=== PATIENT | female | born 1990 | race Hispanic/Latino ===

== ENCOUNTER 2018-07-12 17:30 | Inpatient (IN) | payer OTHER ==
[2018-07-12] MEDS ORDERED: PENICILLIN 5 MU in NA CHLORIDE 0.9% 100 ML IV ONE (20:01)
[2018-07-12] MEDS ORDERED: Ringers Lactate 1,000 ML IV PRN (20:01)
[2018-07-12] MEDS ORDERED: METHYLERGONOVINE 0.2MG/ML AMP IM PRN (20:01)
[2018-07-12] MEDS ORDERED: BUTORPHANOL 1 MG/ML INJ IV PRN (20:01)
[2018-07-12] MEDS ORDERED: CARBOPROST TROME 250 MCG/ML IM PRN (20:01)
[2018-07-12] MEDS ORDERED: PROMETHAZINE 25 MG/ML VIAL IV PRN (20:01)
--- OUTSIDE RECORDS SUMMARY | 2018-07-12 20:04 | XMS REPORT ---
:1990 Author Organization eClinicalWorks Care Team Providers Name Role Phone Destin Wagner Provider Role Unavailable Allergies No Known Allergies Problems Problem Type Condition Code Onset Dates Condition Status Problem Body mass index (BMI) of 34.0-34.9 Z68.34 Active in adult Problem Encounter for supervision of other Z34.82 Active normal in second trimester Problem Encounter for gynecological Z01.419 Active examination without abnormal finding Problem Obesity complicating in O99.213 Active third trimester Problem Obesity complicating in O99.212 Active second trimester Problem Supervision of high risk O09.93 Active in third trimester Problem Family history of other congenital Z82.79 Active malformations, deformations and chromosomal abnormalities Problem Maternal care for suspected O35.2XX0 Active hereditary disease in fetus, single or unspecified fetus Problem Supervision of high risk O09.92 Active in second trimester Problem Obesity complicating in O99.211 Active first trimester Assessment Obesity complicating in O99.213 Active third trimester Assessment Supervision of high risk O09.93 Active in third trimester Assessment Family history of other congenital Z82.79 Active malformations, deformations and chromosomal abnormalities Problem Other obesity due to excess E66.09 Active calories Medications Medication Code Code Instructions Start End Status Dosage System Date Date Diflucan ND 79773204506 150 MG Orally Sep 09, Active 1 tablet Once a day 2017 Diflucan NDC 71581888138 150 MG Orally Active 1 tablet Once a day NuvaRing [facility] [address]-31 0.015-0.12 Active 1 ring MG/24HR Vaginal Multivitamin ND 30670010479 - Orally Active not Women defined Results No Known Results Summary Purpose eClinicalWorks Submission
--- OUTSIDE RECORDS SUMMARY | 2018-07-12 20:04 | XMS REPORT ---
:1990 Author Organization eClinicalWorks Care Team Providers Name Role Phone Destin Wagner Provider Role Unavailable Allergies No Known Allergies Problems Problem Type Condition Code Onset Dates Condition Status Assessment Other obesity due to excess E66.09 Active calories Assessment Encounter for supervision of other Z34.82 Active normal in second trimester Assessment Family history of other congenital Z82.79 Active malformations, deformations and chromosomal abnormalities Assessment Obesity complicating in O99.211 Active first trimester Assessment Maternal care for suspected O35.2XX0 Active hereditary disease in fetus, single or unspecified fetus Problem Family history of other congenital Z82.79 Active malformations, deformations and chromosomal abnormalities Problem Encounter for supervision of other Z34.82 Active normal in second trimester Problem Obesity complicating in O99.211 Active first trimester Problem Body mass index (BMI) of 34.0-34.9 Z68.34 Active in adult Problem Other obesity due to excess E66.09 Active calories Problem Maternal care for suspected O35.2XX0 Active hereditary disease in fetus, single or unspecified fetus Problem Encounter for gynecological Z01.419 Active examination without abnormal finding Medications Medication Code Code Instructions Start End Status Dosage System Date Date NuvaRing [facility] [address]-64 0.015-0.12 Active 1 ring MG/24HR Vaginal Diflucan [facility] 99109693947 150 MG Orally Sep 09, Active 1 tablet Once a day 2017 Multivitamin [facility] 33487217723 - Orally Active not Women defined Diflucan NDC 19232031046 150 MG Orally Active 1 tablet Once a day Results No Known Results Summary Purpose eClinicalWorks Submission
--- OUTSIDE RECORDS SUMMARY | 2018-07-12 20:04 | XMS REPORT ---
:1990 Author Organization eClinicalWorks Care Team Providers Name Role Phone Shania Rosado Provider Role Unavailable Allergies, Adverse Reactions, Alerts Substance Reaction Event Type N.K.D.A. Info Not Available Non Drug Allergy Problems Problem Type Condition Code Onset Dates Condition Status Problem Encounter for gynecological Z01.419 Active examination without abnormal finding Problem Body mass index (BMI) of 34.0-34.9 Z68.34 Active in adult Problem Other obesity due to excess E66.09 Active calories Assessment 9 weeks gestation of Z3A.09 Active Assessment Body mass index (BMI) of 34.0-34.9 Z68.34 Active in adult Medications Medication Code Code Instructions Start End Status Dosage System Date Date NuvaRing [facility] [address]-47 0.015-0.12 Active 1 ring MG/24HR Vaginal Diflucan [facility] 24021612977 150 MG Orally Sep 09, Active 1 tablet Once a day [address] [facility] 90899371181 - Orally Active not Women defined Results No Known Results Summary Purpose eClinicalWorks Submission
--- OUTSIDE RECORDS SUMMARY | 2018-07-12 20:04 | XMS REPORT ---
:1990 Author Organization eClinicalWorks Care Team Providers Name Role Phone Destin Wagner Provider Role Unavailable Allergies, Adverse Reactions, Alerts Substance Reaction Event Type N.K.D.A. Info Not Available Non Drug Allergy Problems Problem Type Condition Code Onset Dates Condition Status Assessment Encounter for supervision of Z34.91 Active low-risk in first trimester Assessment Amenorrhea N91.2 Active Assessment Encounter to determine O36.80X0 Active viability of , single or unspecified fetus Problem Family history [...] examination without abnormal finding Medications Medication Code System Code Instructions Start End Date Status Dosage Date NuvaRing [facility] [address]-23 0.015-0.12 Active 1 ring MG/24HR Vaginal Diflucan [facility] 76561972651 150 MG Orally Sep 09, Active 1 tablet Once a day 2017 Results Name Result Date Reference Range Unit Abnormality Flag Vaginitis/Vaginosis, DNA Probe Summary Purpose eClinicalWorks Submission
--- OUTSIDE RECORDS SUMMARY | 2018-07-12 20:04 | XMS REPORT ---
:1990 Author Organization eClinicalWorks Care Team Providers Name Role Phone Destin Wagner Provider Role Unavailable Allergies No Known Allergies Problems Problem Type Condition Code Onset Dates Condition Status Problem Family history of other congenital Z82.79 [...] Z01.419 Active examination without abnormal finding Medications No Known Medications Results No Known Results Summary Purpose eClinicalWorks Submission
--- OUTSIDE RECORDS SUMMARY | 2018-07-12 20:04 | XMS REPORT ---
[...] excess E66.09 Active calories Medications Medication Code System Code Instructions Start Date End Date Status Dosage Diflucan [facility] 65679844142 150 MG Orally Active 1 tablet Once a day Results No Known Results Summary Purpose eClinicalWorks Submission
--- OUTSIDE RECORDS SUMMARY | 2018-07-12 20:04 | XMS REPORT ---
:1990 Author Organization eClinicalWorks Care Team Providers Name Role Phone Destin Wagner Provider Role Unavailable Allergies No Known Allergies Problems Problem Type Condition Code Onset Dates Condition Status Problem Body mass index (BMI) of 34.0-34.9 Z68.34 Active in adult Problem Other obesity due to excess E66.09 Active calories Problem Supervision of high risk O09.92 Active in second trimester Problem Obesity complicating in O99.211 Active first trimester Problem Obesity complicating in O99.212 Active second trimester Problem Maternal care for suspected O35.2XX0 Active hereditary disease in fetus, single or unspecified fetus Problem Encounter for gynecological Z01.419 Active examination without abnormal finding Problem Family history of other congenital Z82.79 Active malformations, deformations and chromosomal abnormalities Problem Encounter for supervision of other Z34.82 Active normal in second trimester Assessment Maternal care for suspected O35.2XX0 Active hereditary disease in fetus, single or unspecified fetus Assessment Family history of other congenital Z82.79 Active malformations, deformations and chromosomal abnormalities Assessment Obesity complicating in O99.212 Active second trimester Assessment Supervision of high risk O09.92 Active in second trimester Medications Medication Code Code Instructions Start End Status Dosage System Date Date Multivitamin [facility] 71100381584 - Orally Active not Women defined Diflucan ND 86732647010 150 MG Orally Sep 09, Active 1 tablet Once a day 2017 Diflucan NDC 54213392500 150 MG Orally Active 1 tablet Once a day NuvaRing [facility] [address]-70 0.015-0.12 Active 1 ring MG/24HR Vaginal Results No Known Results Summary Purpose eClinicalWorks Submission
--- OUTSIDE RECORDS SUMMARY | 2018-07-12 20:04 | XMS REPORT ---
[...] End Status Dosage System Date Date NuvaRing [facility] [address]-89 0.015-0.12 Active 1 ring MG/24HR Vaginal Diflucan [facility] 35968503400 150 MG Orally Sep 09, Active 1 tablet Once a day 2017 Diflucan [facility] 91791616287 150 MG Orally Active 1 tablet Once a day Multivitamin ND 25477818210 - Orally Active not Women defined Results No Known Results Summary Purpose eClinicalWorks Submission
[2018-07-12] MEDS ORDERED: Ringers Lactate 1,000 ML IV SCH (21:00)
[2018-07-12] MEDS ORDERED: OXYTOCIN/LR 20 UNIT/1,000 ML BAG IV SCH (21:00)
[2018-07-12 21:32] LABS: RPR Titer ND
[2018-07-12 21:39] LABS: Urine Appearance CLOUDY; Urine Bilirubin NEGATIVE (NEG); Urine Blood NEGATIVE (NEG); Urine Color YELLOW; Urine Glucose NEGATIVE (NEG); Urine Protein NEGATIVE (NEG); Urine Specific Gravity 1.015 (1.005-1.030); Urine Urobilinogen 0.2 mg/dL (0.2-1.0)
[2018-07-12 21:53] LABS: Absolute Lymphocytes (CBC) 2.3 K/uL (0.7-4.9); Absolute Monocytes 0.6 K/uL (0.1-1.3); Absolute Neutrophil 7.6 K/uL (1.8-8.0); Basophils % 0.3 % (0-1.3); Eosinophils % 0.7 % (0-4.4); Hematocrit 34.7 % (36.0-45.0); Lymphocytes % 21.7 % (15.3-44.8); MPV 8.2 fL (7.6-11.3); Monocytes % 5.9 % (3.3-12.3); RBC Red Blood Cell Count 4.35 M/uL (3.86-4.86)
[2018-07-12 21:59] LABS: Urine Microscopic Reflex ORDER UMIC
[2018-07-12 22:00] LABS: Urine Bacteria <20 /HPF (<20); Urine RBC <5 /HPF (NONE SEEN)
[2018-07-12 22:01] LABS: Urine Culture Reflex Order NOT NEEDED
[2018-07-12] MEDS ORDERED: PENICILLIN G POT 5 MU/100 ML BAG IV ONE (22:17)
[2018-07-12] MEDS ORDERED: ZOLPIDEM TARTRATE 5 MG TABLET ONE (22:46)
[2018-07-12 23:00] VITALS: BMI 36.4
[2018-07-12] MEDS ORDERED: PENICILLIN G POT 5 MU/VIAL IV ONE (23:59)
[2018-07-13] MEDS ORDERED: NA CHLORIDE 0.9% 0 ML IV ONE
[2018-07-13] MEDS ORDERED: PENICILLIN 2.5 MU in NA CHLORIDE 0.9% 100 ML IV SCH (00:01)
[2018-07-13] MEDS ORDERED: NA CHLORIDE 0.9% 200 ML IV ONE (00:02)
[2018-07-13 03:39] LABS: RPR (Rapid Plasma Reagin) NON-REACT (NON-REACT)
[2018-07-13] MEDS ORDERED: FENTANYL/BUPIVACAINE/NS/PF 200 MCG/100 ML BAG EP PRN (05:01)
[2018-07-13] MEDS ORDERED: FENTANYL CITR 100 MCG/2 ML IV ONE (05:02)
[2018-07-13] MEDS ORDERED: ROPIVACAINE HCL 20 ML ONE (05:28)
[2018-07-13] MEDS ORDERED: METHYLERGONOVINE 0.2MG/ML AMP IM ONE (09:14)
[2018-07-13] MEDS: IBUPROFEN 200 MG TAB PO PRN (13:50)
[2018-07-13] MEDS ORDERED: ZOLPIDEM TARTRATE 5 MG TABLET PO ONE (21:55)
[2018-07-13] MEDS ORDERED: ACETAMINOPHEN 500 MG TAB PO PRN (22:18)
[2018-07-13] MEDS ORDERED: Oxycodone HCl/Acetaminophen 1 TAB TAB PO PRN (22:18)
--- NOTE | 2018-07-13 22:21 | P.OP ---
Date of Service: 07/13/18 Findings and Operative Technique Patient delivered a viable female infant in cephalic presentation on 07/13/18 at 09:43. Infant was delivered over a midline episiotomy. Once was delivered the nose and mouth were suctioned with a suction bulb and cord was clamped and cut. Infant was placed on the mother's abdomen for skin to skin bonding. Cord blood was obtained. Attention was then turned to the placenta which was delivered with gentle traction at 09:45. Placenta was examined and noted to be intact. Attention was then turned to the episiotomy which was repaired with a 2.0 vicryl in normal fashion. EBL was 300 cc. Fundus was palpated and found to be firm. APGARS were 9/9. Weight was found to be 7 lb 2 ounces First stage of labor was 6 hours and 23 minutes. Second stage was 11 minutes. Both mom and baby are doing well.
[2018-07-14] MEDS: IBUPROFEN 200 MG TAB PO PRN (00:45)
[2018-07-14 11:47] VITALS: BP 128/76; TEMP 97.5
[2018-07-16 21:23] LABS: HBsAG Nonreactive (Nonreactive)
== END 2018-07-14 13:15 | disposition home or self-care (01) | DRG 807 ==
LOC: 2ND-WC 20:02
PROVIDERS: ADMIT Student in an Organized Health Care Education/Training Program; ATTEND Student in an Organized Health Care Education/Training Program
PROC: 3E033VJ Introduction of Other Hormone into Peripheral Vein, Percutaneous Approach (ICD-10-PCS; principal; 2018-07-13)
PROC: 10E0XZZ Delivery of Products of Conception, External Approach (ICD-10-PCS; 2018-07-13)
PROC: 0W8NXZZ Division of Female Perineum, External Approach (ICD-10-PCS; 2018-07-13)
DX: O41.03X0 Oligohydramnios, third trimester, not applicable or unspecified (principal); Z37.0 Single live birth; Z3A.38 38 weeks gestation of pregnancy; O99.824 Streptococcus B carrier state complicating childbirth; O09.93 Supervision of high risk pregnancy, unspecified, third trimester; Z82.79 Family history of other congenital malformations, deformations and chromosomal abnormalities; O99.213 Obesity complicating pregnancy, third trimester
CPT/HCPCS: 36415; 81003; 81015; 85014; 85025; 86592; 86850; 86900; 86901; 87340; J2210; J2590; J3010

== ENCOUNTER 2023-06-17 00:04 | Emergency (ER) | payer OTHER, SELFPAY ==
--- NOTE | 2023-06-17 00:08 | EDPHYS ---
Physician Documentation [facility] Name: Eleanor Her Age: 32 yrs Sex: Female : 1990 Arrival Date: 06/17/2023 Time: 00:04 Bed IW1 Private MD: ED Physician Reji Armijo HPI: 06/17 00:27 This 32 yrs old Female presents to ER via Unassigned with complaints of kb Employee Exposure. 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 Came in to get prophylactic antibiotic.. Historical: - Allergies: 00:36 No Known Allergies; cm10 - Immunization history:: Adult Immunizations unknown. - Social history:: Smoking status: Patient denies any tobacco usage or history of. ROS: 00:27 Constitutional: Negative for fever, chills, and weight loss, kb 00:27 All other systems are negative, Exam: 00:27 Constitutional: This is a well developed, well nourished patient who is awake, alert, kb and in no acute distress. Head/Face: Normocephalic, atraumatic. ENT: Moist Mucous membranes Respiratory: Respirations even and unlabored. No increased work of breathing. Talking in full sentences Skin: Warm, dry with normal turgor. Normal color. MS/ Extremity: Pulses equal, no cyanosis. Neurovascular intact. Full, normal range of motion. Neuro: Awake and alert, GCS 15, oriented to person, place, time, and situation. Moves all extremities. Normal gait. Vital Signs: 00:35 BP 124 / 86; Pulse 77; Resp 18; Temp 98.6; Pulse Ox 100% on R/A; cm10 MDM: 00:06 Patient medically screened. kb 00:27 Data reviewed: vital signs, nurses notes. Counseling: I had a detailed discussion with kb the patient and/or guardian regarding the historical points, exam findings, and any diagnostic results supporting the discharge/admit diagnosis, the need for outpatient follow up, a family practitioner, to return to the emergency department if symptoms worsen or persist or if there are any questions or concerns that arise at home. Administered Medications: 00:54 Drug: Ciprofloxacin PO 1 grams PO once Route: PO; cm10 00:54 Follow up: Response: No adverse reaction cm10 Disposition: 03:58 Co-signature as Attending Physician, Reji Armijo MD I agree with the assessment sp4 and plan of care. I reviewed the patient's care provided by Advanced Practice Provider \T\ agree w/ the diagnosis \T\ care plan. I personally saw the pt \T\ performed a substantive portion of the visit, incldng all aspects of the (History/Exam/Medical Decision Making). Disposition Summary: 06/17/23 00:08 Discharge Ordered Notes: Location: Home kb Condition: Stable kb Diagnosis - Exposure to bacterial meningitis kb Followup: kb - With: Emergency Department - When: As needed - Reason: Worsening of condition Followup: kb - With: Private Physician - When: 2 - 3 days - Reason: Recheck today's complaints, Continuance of care, Re-evaluation by your physician Forms: - Medication Reconciliation Form kb - Thank You Letter kb - Antibiotic Education kb - Prescription Opioid Use kb - Patient Portal Instructions kb - Leadership Thank You Letter kb Signatures: Donya Jamison, BLAIR-C BLAIR-Reji Hardy MD MD sp4 Cesia Wall, RN RN cm10
--- OUTSIDE RECORDS SUMMARY | 2023-06-17 00:08 | XMS REPORT | Continuity of Care Document ---
:1990 Author Organization [facility] t Address [address] [place] [address] Care Team Providers Name Role Phone Sydney Rosado Attending Clinician Unavailable Payers Payer Name Policy Type Policy Number Effective Date Expiration Date [facility] 6 [id number] Common Spiri t [facility] - [facility] Center Problems Condition Condition Condition Status Onset Resolution Last Treating Co mments Source Name Details Category Date Date Treatment Clinician Date [id number] Supervisio Problem Com mon n of high Spirit risk - [facility] St [facility] third [facility] trimester Medical Center [id number] Obesity Problem Comm on 07 complicati Spirit ng - [facility] St in second [facility] trimester Medical [place] [id number] Encounter Problem Comm on for Spirit initial - CHI prescripti St on of [facility] contracept Medica l nusrat pills Center [id number] Other Problem Common injury of Spirit unspecifie - CHI d body St region, [facility] Medical encounter Center [id number] Strain of Problem Com mon muscle and Spirit tendon of - CHI back wall St of thorax, [facility] Medical encounter Center [id number] Tonsilliti Problem Com mon s Spirit - [facility] [id number] Sore Problem Common throat [facility] - [facility]I [facility] [id number] Non-recurr Problem Co mmon ent acute Spirit serous - CHI otitis St media of [facility] right ear [facility] [id number] Low back Problem Comm on pain, Spirit unspecifie - CHI d [facility] [id number] Encounter Problem Com mon for Spirit general - CHI adult [facility] examinatio Medica l n without Center abnormal findings [id number] Other Problem Common obesity Spirit due to - [facility]I excess [facility] [id number] Family Problem Common history of Spirit other - CHI congenital malformati [facility] ons, Medical deformatio Center ns and chromosoma l abnormalit ies [id number] Encounter Problem Comm on for Spirit supervisio - CHI n of other [facility] Medical in second Center trimester Allergies, Adverse Reactions, Alerts This patient has no known allergies or adverse reactions. Social History Social Habit Start Date Stop Date Quantity Comments Source History of Tobacco Use Co mmon [facility] Sex Assigned At Com mon [facility] Smoking Status Start Date Stop Date Source Never Smoker Common [facility] Medications Ordered Filled Start Stop Current Ordering Indication Dosage Frequency Signature Comments Components Source Medication Medication Date Date Medication? Clinician (SIG) Name Name Methocarbam Methocarbam 2021-07 No 1{table 6xD Methocarba ol 750 MG ol 750 MG t} mol 750 MG 00:00: 00 Diclofenac Diclofenac 2021-07- No 1{table BID Diclofenac Sodium 75 Sodium 75 05-31 t_as_ne Sodium 75 MG MG 00:00: 00:00 eded} MG 00 :00 Lidocaine Lidocaine 2018-07- No Sydney 15 ml as Common Viscous HCl Viscous HCl 08-04 [place] needed Spirit 00:00: 00:00 - CHI 00 :00 [facility] Amoxicillin Amoxicillin 2018-07- No Sydney 1 tablet Common 08-04 [place] Spirit 00:00: 00:00 - CHI 00 :00 [facility] Nexplanon Nexplanon Yes Sydney as Comm on [place] directed [facility] Nexplanon Nexplanon No Nexplanon 68 MG 68 MG 68 MG Phentermine Phentermine No 1{capsu QD Phentermin HCl 37.5 MG HCl 37.5 MG le} e HCl 37.5 MG Vital Signs Vital Name Observation Time Observation Value Comments Source height 2022-05-11 13:40:00 61.5 [in_i] Common S pirit [facility] weight 2022-05-11 13:40:00 177.4 [lb_av] Common [facility] temperature 2022-05-11 13:40:00 98.2 [degF] Common [facility] bmi 2022-05-11 13:40:00 32.97 kg/m2 Common [facility] oximetry 2022-05-11 13:40:00 99 % Common [facility] respiratory rate 2022-05-11 13:40:00 16 /min Comm on [facility] blood pressure 2022-05-11 13:40:00 112 mm[Hg] Common [facility] systolic [facility] blood pressure 2022-05-11 13:40:00 60 mm[Hg] [facility] diastolic [facility] Procedures This patient has no known procedures. Encounters Start End Encounter Admission Attending Care Care Encounter Source Date/Time Date/Time Type Type Clinicians Facility Department ID 2022-05-20 Outpatient Alonzo, STLMLC STLMLC [id number] Common 07:26:01 Sydney [id number] [facility] 2022-05-11 Outpatient Alonzo, STLMLC STLMLC [id number] Common 10:26:01 Sydney [id number] [facility] 2022-05-11 2022-05-11 OFFICE STLMLC STLMLC [id number] Co mmon 00:00:00 00:00:00 VISIT NEW Spir it PT LEVEL 4 [facility] 2019-07-25 2019-07-25 [facility] [id number] Common 09:00:00 09:00:00 [facility] [address] [facility] 2019-02-14 2019-02-14 [facility] [id number] Common 09:00:00 09:00:00 [facility] [address] [facility] 2018-08-22 2018-08-22 [facility] [id number] Common 13:30:00 13:30:00 [facility] pirit [facility] 2018-07-12 2018-07-12 [facility] [id number] Common 14:49:00 14:49:00 [facility] 2018-07-11 2018-07-11 [facility] [id number] Common 15:30:00 15:30:00 t [facility] Womens Care S pirit Care [facility] 2018-07-06 2018-07-06 [facility] [id number] Common 15:30:00 15:30:00 [facility] 2018-07-06 2018-07-06 [facility] [id number] Common 15:15:00 15:15:00 t [facility] it Road [facility] 2018-05-04 2018-05-04 [facility] [id number] Common 13:30:00 13:30:00 [facility] S pirit Care [facility] 2018-04-04 2018-04-04 [facility] [id number] Common 13:30:00 13:30:00 [facility] S pirit Care [facility] 2018-03-03 2018-03-03 [facility] [id number] Common 13:30:00 13:30:00 t [facility] - I Clinic [facility] 2018-02-28 2018-02-28 [facility] [id number] Common 09:30:00 09:30:00 t [facility] - [facility] I [facility] 2018-02-11 2018-02-11 [facility] [id number] Common 15:42:00 15:42:00 t [facility] - [facility] I Clinic [facility] 2018-01-31 2018-01-31 [facility] [id number] Common 13:45:00 13:45:00 t [facility] - I [facility] 2017 2017 Outpatient Meghna Rhodes [id number] Common 16:23:00 16:23:00 t [facility] it Care Care Clinic - I [facility] 2017-12-21 2017-12-21 Outpatient Meghna Rhodes [id number] Common 13:45:00 13:45:00 t [facility] it Road [facility] 2017-12-21 2017-12-21 Outpatient Meghna Rhodes [id number] Common 09:30:00 09:30:00 t [facility]'s [facility] it Care Care Clinic - I [facility] Results This patient has no known results.
[2023-06-17] MEDS ORDERED: CIPROFLOXACIN HCL 500 MG TAB ONE (00:59)
--- NOTE | 2023-06-17 01:01 | ER ---
Nurse's Notes [facility] Name: Eleanor Her Age: 32 yrs Sex: Female : 1990 Arrival Date: 06/17/2023 Time: 00:04 Bed IW1 Private MD: Diagnosis: Exposure to bacterial meningitis Presentation: 06/17 00:35 Chief complaint: Patient states: Presenting to the ED after being exposed to a patient cm10 diagnosed with bacterial meningitis. Coronavirus screen: Vaccine status: Patient reports being unvaccinated. Client denies travel out of the [place] in the last 14 days. Ebola Screen: Patient denies travel to an Ebola-affected area in the 21 days before illness onset. No symptoms or risks identified at this time. Initial Sepsis Screen: Does the patient meet any 2 criteria? No. Patient's initial sepsis screen is negative. Does the patient have a suspected source of infection? No. Patient's initial sepsis screen is negative. Risk Assessment: Do you want to hurt yourself or someone else? Patient reports no desire to harm self or others. Onset of symptoms was June 17, 2023. 00:35 Method Of Arrival: Ambulatory cm10 00:35 Acuity: DESMOND 4 cm10 Triage Assessment: 00:36 General: Appears in no apparent distress. comfortable, Behavior is calm, cooperative. cm10 Pain: Denies pain. Neuro: No deficits noted. Level of Consciousness is awake, alert, obeys commands, Oriented to person, place, time, situation. Historical: - Allergies: 00:36 No Known Allergies; cm10 - Immunization history:: Adult Immunizations unknown. - Social history:: Smoking status: Patient denies any tobacco usage or history of. Screenin:37 [facility] ED Fall Risk Assessment (Adult) History of falling in the last 3 months, cm10 including since admission. Abuse screen: Denies threats or abuse. Denies injuries from another. Nutritional screening: No deficits noted. Tuberculosis screening: No symptoms or risk factors identified. Vital Signs: 00:35 BP 124 / 86; Pulse 77; Resp 18; Temp 98.6; Pulse Ox 100% on R/A; cm10 ED Course: 00:06 Patient arrived in ED. [id number] 00:06 Donya Jamison FNP-C is [facility]. kb 00:06 Reji Armijo MD is Attending Physician. kb 00:36 Triage completed. cm10 00:36 Arm band placed on Patient placed in waiting room. cm10 00:37 Patient has correct armband on for positive identification. Provided Education on: ER cm10 process and procedures.. 00:37 No provider procedures requiring assistance completed. Patient did not have IV access cm10 during this emergency room visit. Administered Medications: 00:54 Drug: Ciprofloxacin PO 1 grams PO once Route: PO; cm10 00:54 Follow up: Response: No adverse reaction cm10 Medication: 00:37 VIS not applicable for this client. cm10 Outcome: 00:08 Discharge ordered by . kb 00:37 Discharged to home ambulatory, cm10 00:37 Condition: good 00:37 Discharge instructions given to patient, Instructed on discharge instructions, follow up and referral plans. Demonstrated understanding of instructions, follow-up care, 01:00 Patient left the ED. cm10 Signatures: Donya Jamison, [employer]-C [employer]-CkAnu Moe [id number] Cesia Wall, RN RN cm10
[2023-06-17 01:12] VITALS: BP 124/86; TEMP 98.6; O2SAT 100
== END 2023-06-17 01:00 | disposition home or self-care (01) ==
LOC: ER 00:04
DX: Z20.811 Contact with and (suspected) exposure to meningococcus (principal)
CPT/HCPCS: 99283